=== PATIENT | male | born 1945 ===

== ENCOUNTER → 2018-10-09 | Day surgery (SDC) | payer MEDICARE ==
[2018-09-18 10:10] VITALS: BMI 21.9
[~2018-10-09] MED LIST: Carbachol 0.01% IO ONE; Hyaluronidase Human, Recombi 150 U/ML VIAL ONE; Lactated Ringer's 500 ML IV ONE; Phenylephrine 2.5% Opht Soln ONE; Phenylephrine 2.5% Opht Soln OS SCH; Propofol 10 mg/ml Inj (20 ML) ONE; Tetracaine 0.5% Ophth (OR ONLY) ONE; Tropicamide 0.5% Opht Sol OS ONE; Tropicamide 0.5% Opht Sol OS SCH
[2018-10-09] MEDS: Gentamicin 80 mg/2mL Inj. ONE ×2 (13:55→14:23)
[2018-10-09] MEDS: MethylPREDNISolone 40 mg Vial ONE ×2 (13:56→14:23)
[2018-10-09 16:12] VITALS: RESP 18; TEMP 97
[2018-10-09 16:34] VITALS: BP 136/70; PULSE 71; O2SAT 100
--- NOTE | 2018-10-10 02:47 | OP ---
PROCEDURE DATE: 10/09/2018 PREOPERATIVE DIAGNOSIS: Bullous keratopathy, left eye. POSTOPERATIVE DIAGNOSIS: Bullous keratopathy, left eye. OPERATIVE PROCEDURE: Descemet stripping endothelial keratoplasty, left eye. ATTENDING PHYSICIAN: Phu Bradley MD ANESTHESIA: Retrobulbar block and sedation. COMPLICATIONS: None. ESTIMATED BLOOD LOSS: 0.5 mL. DESCRIPTION OF PROCEDURE: The patient was brought to the operating room and properly identified. Anesthesia gave sedation. Retrobulbar block was given to the left eye with no complication. The patient was then prepped and draped in the usual sterile fashion. Superiorly, there was noted to be what looked like an old glaucoma surgery or trabeculectomy, so decision was then made to begin the surgery temporarily. A temporal peritomy created using 5.0 Leigh scissors. Cautery was used to maintain hemostasis. A keratome blade was used to create a 5.5-mm scleral tunnel. Once this was completed, two sideport incisions were made. Anterior chamber was then deepened. Once it was deepened, the anterior chamber was entered through the scleral tunnel using a keratome. The cornea was marked by an 8.5-mm marker. This patient had a corneal transplant, so the entire portion of the transplant was scored using the Reverse Sinskey. Using Utrata forceps, the Descemet membrane was then removed. Three stab incisions were made into the cornea . Joss scraper was used to scrape the strong portion of the periphery of the cornea. Automated I and A was used to remove the viscoelastic in the eye. The wound was extended to its foci using the keratome. Miostat was instilled anterior chamber to deepen the chamber and shrunk the pupil. This patient's pupils were struck peripherally due to previous scarring. Attention was then turned to the donor tissue. An 8.5-mm donor punch was then created. This was brought to the eye. The lenticule was then folded in a taco formation using Errol forceps. It was held in place and introduced into the anterior chamber. The wound was then closed with three 10-0 nylon sutures which were buried. The lenticule was then unfolded using a 30-gauge needle on air inside the eye. Once it was unfolded, the anterior chamber was filled with air for the next 10 minutes. Dilating drops was placed on the eye in 5-minute interval. Once that was complete, then bubble was then shrunk. Topical antibiotics and steroids have been given. The lenticule looked in good position. The eye was covered with soft patch and shield. The patient was returned to recovery room in stable condition. Phu Bradley MD
== END | disposition home or self-care (01) ==
LOC: C.SDS 11:12
PROVIDERS: ATTEND Ophthalmology
DX: H18.12 Bullous keratopathy, left eye (principal)
CPT/HCPCS: 65756; 88305; J1580; J2001; J2704; J2920; J3470